=== PATIENT | female | born 1950 | race Caucasian/White ===

== ENCOUNTER → 2019-06-12 14:04 | Outpatient (CLI) | payer OTHER, SELFPAY ==
--- NOTE | 2019-06-12 | DI.RAD.S_ITS ---
PROCEDURE: XR FOOT LT MIN 3V INDICATIONS: LT FOOT PAIN TECHNIQUE: 3 views of the foot were acquired. COMPARISON: None. FINDINGS: Bones: No fractures or dislocations. No suspicious bony lesions. Mild degenerative changes of the left first metatarsophalangeal joint. Soft tissues: No tibiotalar joint effusion. IMPRESSION: Mild degenerative changes of the left first metatarsophalangeal joint. Dictated by: Mckinley Gardner M.D. on 06/12/2019 at 17:38 Approved by: Mckinley Gardner M.D. on 06/12/2019 at 17:42
== END ==
PROVIDERS: PCP Family Medicine; Visit Provider Family Medicine
DX: M79.672 Pain in left foot (principal)
CPT/HCPCS: 73630

== ENCOUNTER → 2019-07-09 14:10 | Outpatient (CLI) | payer OTHER, SELFPAY ==
--- NOTE | 2019-07-09 | DI.MG.S_ITS ---
UNILATERAL RIGHT DIGITAL DIAGNOSTIC MAMMOGRAM 3D/2D WITH ADDITIONAL VIEWS: 07/09/2019 CLINICAL: Additional evaluation requested from prior study. Comparison is made to exams dated: [facility] and 01/30/2014 mammogram [facility]. The tissue of right breast is heterogeneously dense. This may lower the sensitivity of mammography. No significant masses, calcifications, or other findings are seen in the breast. IMPRESSION: NEGATIVE There is no mammographic abnormality seen in the right breast to correspond with the asymmetry on the screening mammogram dated 04/23/19 from [facility]. This smost likely represents superimposed fibroglandular tissue. There is no mammographic evidence of malignancy. A 1 year screening mammogram is recommended. This exam was interpreted at Station ID: [id number]. NOTE: For mammograms, a report in lay terms will be sent to the patient. Approximately 15% of breast malignancies will not be visualized mammographically. In the management of a palpable breast mass, a negative mammogram must not discourage biopsy of a clinically suspicious lesion. Electronically Signed By: Debbie rollins/:07/09/2019 14:58:11 letter sent: Normal Exam ACR BI-RADS Category 1: Negative [id number]
== END ==
PROVIDERS: PCP Family Medicine; Visit Provider Family Medicine
DX: R92.8 Other abnormal and inconclusive findings on diagnostic imaging of breast (principal)
CPT/HCPCS: 77065; G0279

== ENCOUNTER → 2021-07-20 10:14 | Outpatient (CLI) | payer MEDICARE, SELFPAY ==
[2021-07-21 19:43] LABS: Cholesterol 222 mg/dL (140-199); HDL Cholesterol 91 mg/dL (40-60); LDL Cholesterol Calculated 119 mg/dL (<100); Triglycerides 58 mg/dL (35-150)
[2021-07-21 20:00] LABS: Vitamin D 25 Hydroxy (D3) 30.1 ng/mL (30.0-100.0)
[2021-07-21 20:31] LABS: Vitamin B12 223 pg/mL (239-931)
== END ==
PROVIDERS: PCP Family Medicine; Visit Provider Family Medicine
DX: E78.5 Hyperlipidemia, unspecified (principal); E72.11 Homocystinuria; M81.8 Other osteoporosis without current pathological fracture; E55.9 Vitamin D deficiency, unspecified
CPT/HCPCS: 80061; 82306; 82607

== ENCOUNTER → 2021-12-22 13:36 | Outpatient (CLI) | payer MEDICARE, SELFPAY ==
[2021-12-22 19:28] LABS: Alanine Aminotransferase 16 IU/L (<35); Albumin 4.6 g/dL (3.5-5.0); Albumin Globulin Ratio 1.8 (1.0-2.8); Alkaline Phosphatase 79 U/L (38-126); Aspartate Aminotransferase 34 IU/L (14-36); BUN Creatinine Ratio 37.3 (6-22); Bilirubin Total 0.7 mg/dL (0.2-1.3); Blood Urea Nitrogen 25 mg/dL (7-17); Calcium 9.5 mg/dL (8.4-10.2); Carbon Dioxide 31 mmol/L (22-32); Chloride 98 mmol/L (98-107); Cholesterol 221 mg/dL (140-199); Estimated Glomerular Filt Rate > 60 mL/min (>60); Globulin 2.6 g/dL (1.7-4.1); Glucose 94 mg/dL (80-110); HDL Cholesterol 87 mg/dL (40-60); HEMOLYSIS < 15 (0-50); LDL Cholesterol Calculated 120 mg/dL (<100); Potassium 3.9 mmol/L (3.4-5.1); Sodium 136 mmol/L (137-145); Total Protein 7.2 g/dL (6.3-8.2); Triglycerides 69 mg/dL (35-150)
[2021-12-22 20:13] LABS: Vitamin B12 544 pg/mL (239-931)
== END ==
PROVIDERS: PCP Family Medicine; Visit Provider Family Medicine
DX: R94.5 Abnormal results of liver function studies (principal); E53.8 Deficiency of other specified B group vitamins
CPT/HCPCS: 80053; 80061; 82607

== ENCOUNTER → 2022-01-17 11:52 | Outpatient (CLI) | payer MEDICARE, SELFPAY ==
[2022-01-17 19:30] LABS: BUN Creatinine Ratio 44.6 (6-22); Blood Urea Nitrogen 29 mg/dL (7-17); Calcium 9.8 mg/dL (8.4-10.2); Carbon Dioxide 27 mmol/L (22-32); Chloride 106 mmol/L (98-107); Estimated Glomerular Filt Rate > 60 mL/min (>60); Glucose 92 mg/dL (80-110); HEMOLYSIS < 15 (0-50); Potassium 4.3 mmol/L (3.4-5.1); Sodium 140 mmol/L (137-145)
[2022-01-17 19:46] LABS: Vitamin D 25 Hydroxy (D3) 45.7 ng/mL (30.0-100.0)
== END ==
PROVIDERS: PCP Family Medicine; Visit Provider Family Medicine
DX: E87.1 Hypo-osmolality and hyponatremia (principal)
CPT/HCPCS: 80048; 82306

== ENCOUNTER → 2022-11-10 16:18 | Outpatient (CLI) | payer MEDICARE, SELFPAY ==
--- NOTE | 2022-11-10 16:19 | DI.MG.S_ITS ---
BILATERAL DIGITAL SCREENING MAMMOGRAM 3D/2D WITH CAD: 11/10/2022 CLINICAL: Routine screening. Comparison is made to exams dated: 07/09/2019 mammogram - [facility], 04/23/2019 mammogram - [facility], and 01/30/2014 mammogram - [facility]. Both breasts are heterogeneously dense, which may obscure small masses (category c / 51-75% glandular tissue). Current study was also evaluated with a Computer Aided Detection (CAD) system. No significant masses, calcifications, or other findings are seen in either breast. There has been no significant interval change. IMPRESSION: NEGATIVE There is no mammographic evidence of malignancy. A 1 year screening mammogram is recommended. Based on the Tyrer Cuzick model (a risk assessment model) the patient's lifetime risk is 8.2% and her 10 year risk is 5.7%. According to the ACR, ACS, and NCCN guidelines, an annual breast MRI exam along with mammogram is recommended if the patient's lifetime risk is 20% or greater. This exam was interpreted at Station ID: [id number]. NOTE: For mammograms, a report in lay terms will be sent to the patient. Approximately 15% of breast malignancies will not be visualized mammographically. In the management of a palpable breast mass, a negative mammogram must not discourage biopsy of a clinically suspicious lesion. Electronically Signed By: Felix portillo/joe:11/11/2022 07:31:28 letter sent: Normal Exam ACR BI-RADS Category 1: Negative 3341F
== END ==
PROVIDERS: PCP Family Medicine; Referring Provider Family Medicine; Visit Provider Family Medicine
DX: Z12.31 Encounter for screening mammogram for malignant neoplasm of breast (principal)
CPT/HCPCS: 77063; 77067

== ENCOUNTER → 2023-08-29 09:56 | Outpatient (CLI) | payer OTHER, SELFPAY ==
[2023-08-29 19:15] LABS: Add Manual Diff / Slide Review NO; Basophils Absolute Auto 0 /uL (0-100); Basophils Percent Auto 0.6 % (0-2); Eosinophils Absolute Auto 100 /uL (0-450); Eosinophils Percent Auto 2.7 % (2-4); Hematocrit 42.7 % (36-46); Lymphocytes Absolute Auto 1900 /uL (1100-4500); Lymphocytes Percent Auto 37.3 % (25-40); Mean Corpuscular HGB Conc 32.9 % (30-36); Mean Corpuscular Hemoglobin 30.4 PG (26-34); Mean Corpuscular Volume 92.3 fL (80-100); Monocytes Absolute Auto 600 /uL (0-900); Monocytes Percent Auto 12.1 % (3-14); Neutrophils Absolute Auto 2400 /uL (1500-7000); Neutrophils Percent Auto 47.3 % (50-75); Platelet Count 242 X10^3/uL (150-400); Red Blood Cell Count 4.62 X10^6/uL (4.0-5.2); Red Cell Distribution Width 13.4 % (11.6-14.8); White Blood Cell Count 5.1 X10^3/uL (4.5-11.0)
[2023-08-29 19:21] LABS: HEMOLYSIS < 15 (0-50)
[2023-08-29 19:38] LABS: Vitamin D 25 Hydroxy (D3) 26.9 ng/mL (30.0-100.0)
[2023-08-29 19:45] LABS: TSH w/ Reflex to FT4 1.97 uIU/mL (0.47-4.68)
[2023-08-29 19:51] LABS: Alanine Aminotransferase 18 IU/L (<35); Albumin 4.6 g/dL (3.5-5.0); Albumin Globulin Ratio 1.6 (1.0-2.8); Alkaline Phosphatase 90 U/L (38-126); Aspartate Aminotransferase 31 IU/L (14-36); BUN Creatinine Ratio 28.4 (6-22); Bilirubin Total 0.8 mg/dL (0.2-1.3); Blood Urea Nitrogen 21 mg/dL (7-17); Carbon Dioxide 27 mmol/L (22-32); Chloride 99 mmol/L (98-107); Cholesterol 251 mg/dL (140-199); Estimated Glomerular Filt Rate > 60 mL/min (>60); Globulin 2.9 g/dL (1.7-4.1); Glucose 85 mg/dL (80-110); HDL Cholesterol 93 mg/dL (40-60); LDL Cholesterol Calculated 147 mg/dL (<100); Potassium 3.9 mmol/L (3.4-5.1); Sodium 135 mmol/L (137-145); Total Protein 7.5 g/dL (6.3-8.2); Triglycerides 55 mg/dL (35-150)
[2023-08-29 21:32] LABS: Vitamin B12 Reflex MMA if <400 377 pg/mL (239-931)
[2023-09-02 00:49] LABS: Methylmalonic Acid,Serum 163 nmol/L (0-378)
== END ==
PROVIDERS: PCP Family Medicine; Visit Provider Family Medicine
DX: M81.0 Age-related osteoporosis without current pathological fracture (principal); E53.8 Deficiency of other specified B group vitamins; R94.5 Abnormal results of liver function studies; E78.5 Hyperlipidemia, unspecified; E55.9 Vitamin D deficiency, unspecified
CPT/HCPCS: 80053; 80061; 82306; 82607; 83921; 84443; 85025

== ENCOUNTER → 2023-09-06 10:25 | Outpatient (CLI) | payer OTHER, SELFPAY ==
--- NOTE | 2023-09-06 10:27 | DI.RAD.S_ITS ---
Bone Density Report Name: MARNIE GALLEGOS Age: 72 Sex: Female Ethnicity: White Date of : 1950 Indication: postmenopausal osteoporosis; prior fracture; Referring Provider: RAE DONOHUE Study: Bone densitometry was performed. Exam Date: September 06, 2023 Accession number: [id number] Bone Density: Region BMD T-score Z-score Classification AP Spine(L1, L3, L4) 0.654 -3.6 -1.3 Osteoporosis Femoral Neck (Left) 0.343 -4.6 -2.6 Osteoporosis Total Hip (Left) 0.499 -3.6 -2.0 Osteoporosis Femoral Neck (Right) 0.544 -2.7 -0.8 Osteoporosis Total Hip (Right) 0.605 -2.8 -1.1 Osteoporosis Total Hip Mean 0.552 -3.2 -1.6 Osteoporosis World Health Organization criteria for BMD impression classify patients as: Normal (T-score at or above -1.0), Osteopenia (T-score between -1.0 and -2.5), or Osteoporosis (T-score at or below -2.5). 10-year Fracture Risk: FRAX not reported because: Some T-score for Spine Total or Hip Total or Femoral Neck at or below -2.5 Prior hip or vertebral fracture Previous Exams: -- Region Exam Age BMD T-score BMD Change BMD Change Date g/cm2 vs Baseline vs Previous -- AP Spine (L1,L3-L4) 09/06/2023 72 0.654 -3.6 0.039 (6.4%)# 0.039 (6.4%)# 04/18/2016 65 0.615 -4.0 Total Hip(Left) 09/06/2023 72 0.499 -3.6 -0.053 (-9.7%)# -0.053 (-9.7%)# 04/18/2016 65 0.552 -3.2 Total Hip(Right) 09/06/2023 72 0.605 -2.8 -0.021 (-3.3%)# -0.021 (-3.3%)# 04/18/2016 65 0.626 -2.6 -- *Denotes significance at 95% confidence level, LSC for AP Spine = 0.022 g/cm2, LSC for Total Hip = 0.027 g/cm2 # Denotes dissimilar scan types or analysis methods Impression: The patient has established osteoporosis, based on the Left Femoral Neck T-score and the existence of a prior fracture. The patient has risk factors, including: previous fracture. No significant bone loss was observed. Discussion: HIGH RISK OF FRACTURE. BONE DENSITY IS UNDESIRABLY LOW AT ONE OR MORE SKELETAL SITES, CONSISTENT WITH POSTMENOPAUSAL OSTEOPOROSIS. This patient's lowest T-score, in a patient who has previously fractured, meets the World Health Organization's (WHO) criteria for severe osteoporosis. In untreated patients, the risk of osteoporotic fracture increases approximately two-fold for each 1.0 SD decrease in T-score. Low bone density is not the only risk factor for fracture; also consider factors such as patient's age, frailty or poor health, risk of falling, risk of injury, previous osteoporotic fracture, family history of osteoporosis, cigarette smoking, low body weight, etc. Not everyone with low bone mineral density has osteoporosis; osteomalacia and other metabolic bone disorders should also be considered. Patients who have osteoporosis should be evaluated for specific diseases and conditions (secondary causes) that may cause or contribute to bone loss. The [place] [employer] Endocrinologists (AACE) and National Osteoporosis Foundation (NOF) recommend pharmacologic intervention for all postmenopausal women with a previous hip or vertebral fracture and a T-score in this range. The patient should follow a healthful lifestyle (good nutrition with adequate calcium and vitamin D, and appropriate weight-bearing exercise). Follow-Up: Consider a repeat BMD and Vertebral Fracture Assessment (VFA) exam in 2 years or sooner if medically necessary, to reassess this patient's status. Reported by: TRAVIS ALVAREZ MD on 09/06/2023 11:19:00 AM.
== END ==
PROVIDERS: PCP Family Medicine; Referring Provider Family Medicine; Visit Provider Family Medicine
DX: S22.009A Unspecified fracture of unspecified thoracic vertebra, initial encounter for closed fracture (principal); M80.00XA Age-related osteoporosis with current pathological fracture, unspecified site, initial encounter for fracture
CPT/HCPCS: 77080

== ENCOUNTER 2024-07-30 08:54 | Day surgery (SDC) | payer MEDICARE, SELFPAY ==
--- NOTE | 2024-07-30 | PATH_ITS ---
[facility] Accession Number: [id number] No. of containers..01 Tissue . 01 Material submitted: . sigmoid colon - SIGMOID POLYP . 01 Diagnosis: SIGMOID COLON POLYP: Tubular adenoma. RAS 08/02/2024 1145 Local . 01 Electronically signed: . Mode Horan MD, PhD, Pathologist NPI- [id number] . 01 Gross description: . Received in formalin with two patient identifiers and sigmoid polyp, is a single barrientos-brown soft tissue fragment 0.8 cm in greatest dimension. Submitted in cassette A1. ([id number]) /RAS 08/01/2024 1023 Local . 01 Pathologist provided ICD-10: D12.5 . 01 CPT . 802116 Specimen Comment: A courtesy copy of this report has been sent to [phone] Performed at: [address] [facility] [id number] MD Shawn Briones MD Phone: [phone]
[2024-07-30 10:41] VITALS: BP 144/87; PULSE 96; RESP 18; TEMP 36.9; O2SAT 99
--- NOTE | 2024-07-30 10:41 | P.HP_ITS ---
History of Present Illness History of Present Illness Date Patient Seen: 07/30/24 Time Patient Seen: 10:41 Chief complaint: Colonoscopy Narrative: Ashley is a 73-year-old woman who is here for colonoscopy. Her last one was about 11 years ago. She had a recent positive FIT test. She would like to attempt to have the procedure without sedation but she would be amenable to receiving sedation if she absolutely needed it. [facility] Social History Smoking Status: Never smoker Meds Home Medications and Allergies Home Medications Medication Instructions Recorded Confirmed Type calcitonin (salmon) 200 1 spray intranasal (ALT) DAILY 05/30/24 05/31/24 Rx unit/actuation nasal spray osteoporosis #3.7 mL erythromycin 5 mg/gram (0.5 %) eye EYE-BOTH 05/30/24 05/31/24 History ointment azithromycin 250 mg tablet See Rx Instructions PO .COMPLEX #6 05/31/24 05/31/24 Rx tabs peg 3350-sod sulf,unotd-mbp-tso 1,000 ml PO DIRECTED #2,000 mL 07/22/24 Rx 178.7-7.3-0.5-1.12-0.9 gram oral soln (Suflave) Allergies Allergy/AdvReac Type Severity Reaction Status Date / Time Penicillins [PENICILLINS] Allergy Mild Verified 07/30/24 10:33 Exam Const General: healthy appearing Assessment & Plan Assessment and plan (1) Positive FIT (fecal immunochemical test): Status: Acute Plan We will proceed with a colonoscopy without sedation. Time-Based Coding :: [TOTAL MINUTES] spent with patient and on the chart (including review of chart, obtaining history, exam, reviewing outside data, placing orders, documenting exam and treatment plan, and counseling patient) on [DATE].
--- NOTE | 2024-07-30 11:52 | PM.OP.COLON ---
Operative Date/Time/Diagnoses Date of procedure: 07/30/24 Time of procedure: 11:52 Pre-op diagnosis: Positive FIT test Post-op diagnosis: same Procedure & Clinicians Study performed: Colonoscopy Same procedure as scheduled: Yes Surgeon: Ministerio Hussein Procedure Notes Procedure in detail: Surgeon: Ministerio Hussein MD Anesthesia: Bijal Pat CRNA Procedure: The patient was brought to the endoscopy suite, placed in left lateral decubitus position. The patient was connected to monitoring devices. A time-out was performed. Sedation was administered. Once the patient was adequately sedated, a digital rectal exam was performed and was normal. The scope was then inserted and advanced to the cecum where the appendiceal orifice was identified and photographed. The scope was then slowly withdrawn over greater than 6 minutes. The mucosa was thoroughly inspected. There was a 7 mm polyp in the sigmoid colon removed with a cold snare. The scope was retroflexed in the rectum. The scope was straightened and removed. The patient was awakened and brought to recovery. Scope withdrawal time: 6 minutes Sedation time: 22 minutes EBL: 3 mL Findings: 7 mm sigmoid colon polyp Post-procedure Disposition: PACU
[2024-07-30 11:56] VITALS: BP 108/70; PULSE 90; RESP 18; TEMP 36.7; O2SAT 98
[2024-07-30 12:00] VITALS: BP 112/72; PULSE 91; RESP 15; TEMP 36.7; O2SAT 97
[2024-07-30 12:12] VITALS: BP 112/70; PULSE 88; RESP 15; TEMP 36.6; O2SAT 99
== END 2024-07-30 12:39 | disposition home or self-care (01) ==
PROVIDERS: PCP Family Medicine; Referring Provider Surgery; Visit Provider Surgery
PROC: 0DJD8ZZ Inspection of Lower Intestinal Tract, Via Natural or Artificial Opening Endoscopic (ICD-10-PCS; CPT 45378; principal; 2024-07-30 10:45)
DX: Z12.11 Encounter for screening for malignant neoplasm of colon (principal); R19.5 Other fecal abnormalities; D12.5 Benign neoplasm of sigmoid colon
CPT/HCPCS: 45385; J2405; J2704

== ENCOUNTER → 2024-08-13 10:33 | Outpatient (CLI) | payer MEDICARE, OTHER, SELFPAY ==
[2024-08-13 19:37] LABS: Add Manual Diff / Slide Review NO; Basophils Absolute Auto 0 /uL (0-100); Basophils Percent Auto 0.6 % (0-2); Eosinophils Absolute Auto 200 /uL (0-450); Eosinophils Percent Auto 3.5 % (2-4); HEMOLYSIS 16 (0-50); Hematocrit 40.3 % (36-46); Hemoglobin 13.6 g/dL (12.0-16.0); Lymphocytes Absolute Auto 2100 /uL (1100-4500); Lymphocytes Percent Auto 39.7 % (25-40); Mean Corpuscular HGB Conc 33.8 % (30-36); Mean Corpuscular Hemoglobin 31.8 PG (26-34); Mean Corpuscular Volume 94.1 fL (80-100); Monocytes Absolute Auto 600 /uL (0-900); Monocytes Percent Auto 10.8 % (3-14); Neutrophils Absolute Auto 2400 /uL (1500-7000); Neutrophils Percent Auto 45.4 % (50-75); Platelet Count 272 X10^3/uL (150-400); Red Blood Cell Count 4.29 X10^6/uL (4.0-5.2); Red Cell Distribution Width 13.1 % (11.6-14.8); White Blood Cell Count 5.2 X10^3/uL (4.5-11.0)
[2024-08-13 19:45] LABS: Alanine Aminotransferase 16 IU/L (<35); Albumin 4.4 g/dL (3.5-5.0); Albumin Globulin Ratio 1.5 (1.0-2.8); Alkaline Phosphatase 100 U/L (38-126); Aspartate Aminotransferase 52 IU/L (14-36); BUN Creatinine Ratio 22.2 (6-22); Bilirubin Total 0.6 mg/dL (0.2-1.3); Blood Urea Nitrogen 20 mg/dL (7-17); Calcium 9.7 mg/dL (8.4-10.2); Carbon Dioxide 31 mmol/L (22-32); Chloride 101 mmol/L (98-107); Cholesterol 231 mg/dL (140-199); Estimated Glomerular Filt Rate > 60 mL/min (>60); Glucose 91 mg/dL (80-110); HDL Cholesterol 76 mg/dL (40-60); LDL Cholesterol Calculated 139 mg/dL (<100); Sodium 134 mmol/L (137-145); Total Protein 7.4 g/dL (6.3-8.2); Triglycerides 81 mg/dL (35-150)
[2024-08-13 20:04] LABS: Vitamin D 25 Hydroxy (D3) 17.8 ng/mL (30.0-100.0)
[2024-08-13 20:36] LABS: Vitamin B12 630 pg/mL (239-931)
== END ==
PROVIDERS: PCP Family Medicine; Visit Provider Family Medicine
DX: E78.00 Pure hypercholesterolemia, unspecified (principal); E87.1 Hypo-osmolality and hyponatremia; E55.9 Vitamin D deficiency, unspecified; E53.8 Deficiency of other specified B group vitamins; M81.0 Age-related osteoporosis without current pathological fracture; R94.5 Abnormal results of liver function studies
CPT/HCPCS: 80053; 80061; 82306; 82607; 85025

== ENCOUNTER → 2024-10-16 10:41 | Outpatient (CLI) | payer MEDICARE, OTHER, SELFPAY ==
--- NOTE | 2024-10-16 10:43 | DI.ECHO.S_ITS ---
[facility] : : [id number] : [place] : : [id number] : : Phone: [phone] Echocardiogram Report + + :Name: MARNIE GALLEGOS Study Date: 10/16/2024 Height: 63 in : :[facility] ReadingLocation: Weight: 130 lb : : Gender: Female BSA: 1.6 m2 : :: 1950 Age: 73 yrs BP: 129/73 mmHg: :Reason For Study: DYSPNEA, SVT : :Ordering Physician: BELLA, : :LUMA Performed By: Gilbert Solis : :Referring: LUMA BLANCO : + + Interpretation Summary 1) Normal left ventricular thickness, size, wall motion, and systolic function (EF 60-65%). 2) Normal right ventricular size and function. 3) No significant valvular abnormalities. 4) No prior Echo available for comparison. Procedure: A two-dimensional transthoracic echocardiogram with color flow and Doppler was performed. The study quality was technically good. There is no prior echocardiogram noted for this patient. The patient was in normal sinus rhythm during the exam. Left Ventricle: The left ventricle is normal in size. There is normal left ventricular wall thickness. There is no ventricular septal defect visualized. The ejection fraction is estimated to be 60-65%. There are no focal wall motion abnormalities. Diastolic parameters suggest a relaxation abnormality of the left ventricle, consistent with probable normal filling pressures. Right Ventricle: The right ventricle is normal in size and function. Atria: The left atrial size is normal. Right atrial size is normal. There is no Doppler evidence for an interatrial shunt. Mitral Valve: There is mild mitral annular calcification. The mitral valve leaflets appear normal. There is no evidence of stenosis, fluttering, or prolapse. There is no mitral regurgitation noted. Aortic Valve: The aortic valve is trileaflet. The aortic valve opens well. There is no aortic valve stenosis. There is trace aortic regurgitation. Tricuspid Valve: The tricuspid valve leaflets are thin and pliable. There is mild tricuspid regurgitation. The right ventricular systolic pressure is estimated to be at least 34 mmHg based on an estimated right atrial pressure of 3 mm Hg. Pulmonic Valve: The pulmonic valve leaflets are thin and pliable; valve motion is normal. There is no pulmonic valvular regurgitation. Great Vessels: The aortic root is normal size. The dimensions of the ascending aorta are normal. The pulmonary artery is normal size. The IVC is of normal diameter and collapses greater than 50% with a sniff. This suggests a low right atrial pressure of 3 mm Hg. Pericardium/ Pleura There is no pericardial effusion. There is no pleural effusion. MMode/2D Measurements & Calculations LVIDd: 4.0 cm LVOT diam: 2.0 cm LVIDs: 2.5 cm Ao root diam: 3.1 cm FS: 37.3 % asc Aorta Diam: 3.5 cm EPSS: 0.95 cm Ao Arch Diam (Prox Trans): 1.8 cm IVSd: 0.70 cm LVPWd: 0.79 cm LV bryson. diameter/BSA (cm/m^2): 2.5 LV sys. diameter/BSA (cm/m^2): 1.6 LA A2 area: 14.8 cm2 RA long axis: 3.6 cm LA A4 area: 14.8 cm2 RA area: 9.3 cm2 LA length (vol): 4.9 cm RA vol: 20.3 ml LA vol: 38.0 ml RA : 12.6 ml/m2 LA vol index: 23.6 ml/m2 IVC diam: 1.2 cm RVD1 (basal): 3.9 cm RVD2 (mid): 2.8 cm TAPSE: 2.5 cm Doppler Measurements & Calculations Ao V2 max: 143.0 cm/sec LVOT Max Juve: 98.4 cm/sec Ao V2 mean: 100.6 cm/sec LV V1 max P.9 mmHg Ao max P.2 mmHg LV V1 VTI: 20.5 cm Ao mean P.5 mmHg CAYDEN(I,D): 2.0 cm2 Ao V2 VTI: 30.7 cm CAYDEN(V,D): 2.1 cm2 sev ratio: 0.67 CAYDEN indexed to BSA (cm^2/m^2): 1.2 MV E max juve: 50.1 cm/sec TR max juve: 280.2 cm/sec MV A max juve: 58.9 cm/sec TR max P.4 mmHg MV E/A: 0.85 PA V2 max: 87.1 cm/sec Med Peak E' Juve: 5.7 cm/sec PA V2 mean: 63.2 cm/sec E/E' med: 8.8 PA mean P.7 mmHg Lat Peak E' Juve: 7.5 cm/sec PA pr(Accel): 10.5 mmHg E/E' lat: 6.6 E/e' average: 7.7 MV dec time: 0.18 sec SVLVOT): 61.4 ml Reading Physician:03:55 PM
== END ==
PROVIDERS: PCP Family Medicine; Referring Provider Family Medicine; Visit Provider Family Medicine
DX: I47.10 Supraventricular tachycardia, unspecified (principal); I47.29 Other ventricular tachycardia
CPT/HCPCS: 93306

== ENCOUNTER → 2024-12-02 14:19 | Outpatient (CLI) | payer MEDICARE, OTHER, SELFPAY ==
[2024-12-02 19:33] LABS: HEMOLYSIS < 15 (0-50); Iron 83 ug/dL (37-170)
[2024-12-02 19:43] LABS: Alanine Aminotransferase 21 IU/L (<35); Albumin 4.8 g/dL (3.5-5.0); Albumin Globulin Ratio 1.8 (1.0-2.8); Alkaline Phosphatase 87 U/L (38-126); Aspartate Aminotransferase 37 IU/L (14-36); Bilirubin Total 0.6 mg/dL (0.2-1.3); Blood Urea Nitrogen 36 mg/dL (7-17); Calcium 9.8 mg/dL (8.4-10.2); Carbon Dioxide 29 mmol/L (22-32); Chloride 102 mmol/L (98-107); Estimated Glomerular Filt Rate > 60 mL/min (>60); Globulin 2.6 g/dL (1.7-4.1); Glucose 129 mg/dL (70-99); HEMOLYSIS < 15 (0-50); Potassium 4.1 mmol/L (3.4-5.1); Sodium 139 mmol/L (137-145); Total Protein 7.4 g/dL (6.3-8.2)
[2024-12-02 19:49] LABS: Percent Iron Saturation 23 % (15-50); Total Iron Binding Capacity 357 ug/dL (265-497); Transferrin 316 mg/dL (206-381)
[2024-12-02 19:55] LABS: Vitamin D 25 Hydroxy (D3) 34.6 ng/mL (30.0-100.0)
[2024-12-02 20:19] LABS: Ferritin 43 ng/mL (11-264)
== END ==
PROVIDERS: PCP Family Medicine; Visit Provider Family Medicine
DX: E55.9 Vitamin D deficiency, unspecified (principal); I47.10 Supraventricular tachycardia, unspecified; R94.5 Abnormal results of liver function studies; E53.8 Deficiency of other specified B group vitamins
CPT/HCPCS: 80053; 82306; 82728; 83540; 83550

== ENCOUNTER → 2025-01-23 15:27 | Outpatient (CLI) | payer MEDICARE, OTHER, SELFPAY ==
--- NOTE | 2025-01-23 15:30 | DI.MG.S_ITS ---
MM screening mammo BI: 01/23/2025. BI-RADS: 1 CLINICAL: 74-year old female for bilateral screening mammogram. Tyrer-Cuzick lifetime risk of 4.1%. No personal or first-degree family history of breast cancer. PRIOR EXAMS 11/10/2022, 07/09/2019. MAMMOGRAPHY TECHNIQUE: 2D and 3D (tomosynthesis) digital mammographic views obtained, with additional images as needed for full coverage. Current study was also evaluated with a Computer Aided Detection (CAD) system. DENSITY C. The breasts are heterogeneously dense, which may obscure small masses. MAMMOGRAPHY FINDINGS Bilateral: No suspicious mass, asymmetry, microcalcification, or other abnormality seen. IMPRESSION: * No evidence of malignancy. RECOMMENDATIONS Bilateral * Annual screening mammography. OVERALL ASSESSMENT CATEGORY BI-RADS-1: Negative. The [employer] recommends annual screening mammography beginning at age 40 for women with average risk of breast cancer. ELECTRONICALLY SIGNED: Felix Cerrato M.D. on 01/26/2025 at 09:23:43 PM PT Interpreting Station ID: [id number]
== END ==
LOC: MAMMO 15:29
PROVIDERS: PCP Family Medicine; Referring Provider Family Medicine; Visit Provider Family Medicine
DX: Z12.31 Encounter for screening mammogram for malignant neoplasm of breast (principal); R92.333 Mammographic heterogeneous density, bilateral breasts
CPT/HCPCS: 77063; 77067